=== PATIENT | male | born 1965 | race Caucasian/White ===

== ENCOUNTER 2017-12-16 14:52 | Inpatient (IN) | payer MEDICAID ==
[~2017-12-16] VITALS: Ht 167.6 cm; Wt 63.0 kg
[~2017-12-16 14:52] MED LIST: CHLO100T24 PO; TRIH5TAB2 PO
[2017-12-16 18:10] LABS: BASOPHILS # (AUTO) 0.05 K/uL (0.00-0.20); BASOPHILS % (AUTO) 0.5 % (0.0-2.0); EOSINOPHILS # (AUTO) 0.14 K/uL (0.00-0.70); EOSINOPHILS % (AUTO) 1.23 % (1.0-6.0); HEMATOCRIT 35.9 % (41-53); HEMOGLOBIN 11.9 g/dL (13.5-17.5); LYMPHOCYTES # (AUTO) 2.1 K/uL (1.0-4.8); LYMPHOCYTES % (AUTO) 18.7 % (22.0-44.0); MEAN CORPUSCULAR HEMOGLOBIN 29.8 pg (26.0-34.0); MEAN CORPUSCULAR HGB CONC 33.1 G/dL (31.0-37.0); MEAN CORPUSCULAR VOLUME 90 fL (80-100); MONOCYTES # (AUTO) 1.1 K/uL (0.1-1.0); MONOCYTES % (AUTO) 9.6 % (2.0-9.0); NEUTROPHILS # (AUTO) 7.8 K/uL (1.8-7.7); PLATELET COUNT (AUTO) 522 K/uL (150-450); RED BLOOD CELL COUNT(AUTO) 3.99 MIL/uL (4.50-5.90); RED CELL DISTRIBUTION WIDTH 15.4 % (11.5-14.5)
[2017-12-16 18:15] LABS: AMPHET/METH SCREEN,URINE NEGATIVE (NEGATIVE); BARBITURATE SCREEN, URINE NEGATIVE (NEGATIVE); BENZODIAZEPINES SCREEN,URINE NEGATIVE (NEGATIVE); CANNABINOID SCREEN,URINE POSITIVE (NEGATIVE); COCAINE SCREEN,URINE NEGATIVE (NEGATIVE); METHADONE SCREEN, URINE NEGATIVE (NEGATIVE); OPIATE SCREEN,URINE NEGATIVE (NEGATIVE); PHENCYCLIDINE SCREEN,URINE NEGATIVE (NEGATIVE)
[2017-12-16 18:20] LABS: ANION GAP 8 mmol/L (8-16); CALCIUM, TOTAL 8.7 mg/dL (8.8-10.5); CARBON DIOXIDE 27 mmol/L (22-29); CHLORIDE 101 mmol/L (98-107); CREATININE 1.08 mg/dL (0.60-1.30); GLOMERULAR FILTR. RATE CALC > 60 mL/min (>60); GLUCOSE,RANDOM 165 mg/dL (70-110); POTASSIUM 3.4 mmol/L (3.5-5.1); SODIUM SERUM 136 mmol/L (136-145); UREA NITROGEN, BLOOD 11 mg/dL (7-18)
[2017-12-16 18:26] LABS: ALANINE AMINOTRANSFERASE 49 U/L (12-78); ALBUMIN 3.4 g/dL (3.4-5.0); ALKALINE PHOSPHATASE 90 U/L (46-116); ASPARTATE AMINOTRANSFERASE 48 U/L (15-37); BILIRUBIN,TOTAL 0.3 mg/dL (0.1-1.0)
[2017-12-16] MEDS: LORazepam 2 MG TABLET PO PRN (22:57)
[2017-12-16] MEDS: ZOLPIDEM TARTRATE 10 MG TABLET PO PRN (22:57)
[2017-12-17 09:17] LABS: CHOL/HDL RATIO 2.4 (4.2-7.3); CHOLESTEROL 133 mg/dL (131-200); HDL CHOLESTEROL 55 mg/dL (40-60); LDL CHOL (CALC.) 57 mg/dL (0-130); TRIGLYCERIDES 104 mg/dL (15-150)
[2017-12-17 14:09] VITALS: BP 123/96
[2017-12-17 16:29] VITALS: BP 133/70
[2017-12-17] MEDS ORDERED: POTASSIUM CHLORIDE 20 MEQ ER TABLET PO ONE (16:30)
[2017-12-17] MEDS: LORazepam 2 MG TABLET PO PRN (17:00)
[2017-12-17] MEDS ORDERED: DiphenhydrAMINE HCL 50 MG/ML VIAL ONE (18:02)
[2017-12-17] MEDS ORDERED: HALOPERIDOL LACTATE 5 MG/ML VIAL ONE (18:02)
[2017-12-17] MEDS ORDERED: LORazepam 2 MG/ML VIAL ONE (18:02)
[2017-12-17] MEDS ORDERED: DiphenhydrAMINE HCL 50 MG/ML VIAL IM ONE (18:15)
[2017-12-17] MEDS ORDERED: LORazepam 2 MG/ML VIAL IM ONE (18:15)
[2017-12-17] MEDS ORDERED: HALOPERIDOL LACTATE 5 MG/ML VIAL IM ONE (18:15)
[2017-12-18 08:00] VITALS: BP 119/91
[2017-12-18] MEDS: OLANZapine 5 MG TABLET PO SCH ×2 (09:02→16:35)
[2017-12-18] MEDS ORDERED: DiphenhydrAMINE HCL 50 MG/ML VIAL ONE (16:58)
[2017-12-18] MEDS ORDERED: LORazepam 2 MG/ML VIAL IM ONE (17:00)
[2017-12-18] MEDS ORDERED: DiphenhydrAMINE HCL 50 MG/ML VIAL IM ONE (17:00)
[2017-12-18] MEDS ORDERED: HALOPERIDOL LACTATE 5 MG/ML VIAL IM ONE (17:00)
[2017-12-18 17:44] VITALS: BP 118/74
[2017-12-19] MEDS ORDERED: INFLUENZA VIRUS VACCINE QVS 2017-18 (3YR+)/PF 60 MCG/0.5 ML SYRINGE IM ONE (02:00)
[2017-12-19] MEDS ORDERED: -PHARMACY VACCINE NOTE- MISC ONE (02:00)
[2017-12-19 06:46] LABS: ANION GAP 6 mmol/L (8-16); CALCIUM, TOTAL 8.6 mg/dL (8.8-10.5); CARBON DIOXIDE 29 mmol/L (22-29); CHLORIDE 101 mmol/L (98-107); CREATININE 0.75 mg/dL (0.60-1.30); GLOMERULAR FILTR. RATE CALC > 60 mL/min (>60); GLUCOSE,RANDOM 96 mg/dL (70-110); POTASSIUM 4.3 mmol/L (3.5-5.1); SODIUM SERUM 136 mmol/L (136-145); UREA NITROGEN, BLOOD 15 mg/dL (7-18)
[2017-12-19 07:16] LABS: BASOPHILS % (AUTO) 0.6 % (0.0-2.0); EOSINOPHILS % (AUTO) 2.9 % (1.0-6.0); HEMATOCRIT 38.9 % (41-53); HEMOGLOBIN 12.8 g/dL (13.5-17.5); LYMPHOCYTES # (AUTO) 1.8 K/uL (1.0-4.8); MEAN CORPUSCULAR HGB CONC 32.9 G/dL (31.0-37.0); MEAN CORPUSCULAR VOLUME 91 fL (80-100); MONOCYTES # (AUTO) 0.6 K/uL (0.1-1.0); MONOCYTES % (AUTO) 8.9 % (2.0-9.0); NEUTROPHILS # (AUTO) 4.2 K/uL (1.8-7.7); NEUTROPHILS % (AUTO) 61.6 % (40.0-70.0); PLATELET COUNT (AUTO) 508 K/uL (150-450); RED BLOOD CELL COUNT(AUTO) 4.27 MIL/uL (4.50-5.90); RED CELL DISTRIBUTION WIDTH 16.1 % (11.5-14.5)
[2017-12-19] MEDS: OLANZapine 5 MG TABLET PO SCH (08:13)
[2017-12-19 08:48] VITALS: BP 129/79
[2017-12-19] MEDS: LORazepam 2 MG TABLET PO PRN (13:27)
[2017-12-19] MEDS: HALOPERIDOL 5 MG TABLET PO PRN (13:27)
[2017-12-19] MEDS: OLANZapine 10 MG TABLET PO SCH (17:36)
[2017-12-20] MEDS: OLANZapine 10 MG TABLET PO SCH ×2 (07:58→16:26)
[2017-12-20 08:00] VITALS: BP 143/83
[2017-12-20] MEDS: HALOPERIDOL 5 MG TABLET PO PRN (13:48)
[2017-12-20] MEDS: LORazepam 2 MG TABLET PO PRN ×2 (13:48→23:32)
[2017-12-20 16:00] VITALS: BP 111/69
[2017-12-20] MEDS: ZOLPIDEM TARTRATE 10 MG TABLET PO PRN (23:31)
[2017-12-21 05:34] VITALS: BP 114/77
[2017-12-21] MEDS: OLANZapine 10 MG TABLET PO SCH ×2 (08:07→17:12)
[2017-12-21] MEDS: LORazepam 2 MG TABLET PO PRN ×2 (08:08→19:15)
[2017-12-21 08:52] VITALS: BP 125/82
[2017-12-21] MEDS: DIVALPROEX SODIUM 500 MG ER TABLET PO SCH (17:12)
[2017-12-21] MEDS: DiphenhydrAMINE HCL 25 MG CAPSULE PO SCH (17:12)
[2017-12-21] MEDS: HALOPERIDOL 5 MG TABLET PO PRN (19:15)
[2017-12-22] MEDS: DIVALPROEX SODIUM 500 MG ER TABLET PO SCH ×2 (08:13→16:20)
[2017-12-22] MEDS: HALOPERIDOL 5 MG TABLET PO PRN ×2 (08:13→14:45)
[2017-12-22] MEDS: OLANZapine 10 MG TABLET PO SCH ×2 (08:13→16:20)
[2017-12-22] MEDS: DiphenhydrAMINE HCL 25 MG CAPSULE PO SCH ×2 (08:13→16:20)
[2017-12-22] MEDS: LORazepam 2 MG TABLET PO PRN ×2 (08:13→14:45)
[2017-12-22 09:29] VITALS: BP 112/72
[2017-12-22] MEDS: ZOLPIDEM TARTRATE 10 MG TABLET PO PRN (20:11)
[2017-12-23] MEDS: DIVALPROEX SODIUM 500 MG ER TABLET PO SCH ×2 (07:55→16:31)
[2017-12-23] MEDS: DiphenhydrAMINE HCL 25 MG CAPSULE PO SCH ×2 (07:55→16:30)
[2017-12-23] MEDS: OLANZapine 10 MG TABLET PO SCH ×2 (07:55→16:30)
[2017-12-23] MEDS: LORazepam 2 MG TABLET PO PRN ×2 (07:55→13:56)
[2017-12-23] MEDS: HALOPERIDOL 5 MG TABLET PO PRN ×2 (07:56→13:56)
[2017-12-23 08:22] VITALS: BP 132/72
[2017-12-23] MEDS: ZOLPIDEM TARTRATE 10 MG TABLET PO PRN (20:33)
[2017-12-24 04:44] VITALS: BP 123/84
[2017-12-24 06:13] LABS: HEMATOCRIT 37.1 % (41-53); HEMOGLOBIN 12.2 g/dL (13.5-17.5); MEAN CORPUSCULAR HEMOGLOBIN 29.6 pg (26.0-34.0); MEAN CORPUSCULAR VOLUME 90 fL (80-100); PLATELET COUNT (AUTO) 347 K/uL (150-450); RED BLOOD CELL COUNT(AUTO) 4.13 MIL/uL (4.50-5.90); RED CELL DISTRIBUTION WIDTH 15.7 % (11.5-14.5)
[2017-12-24 07:00] LABS: ALANINE AMINOTRANSFERASE 27 U/L (12-78); ALBUMIN 3.2 g/dL (3.4-5.0); ALKALINE PHOSPHATASE 71 U/L (46-116); ANION GAP 4 mmol/L (8-16); ASPARTATE AMINOTRANSFERASE 18 U/L (15-37); BILIRUBIN,TOTAL 0.2 mg/dL (0.1-1.0); CALCIUM, TOTAL 8.5 mg/dL (8.8-10.5); CARBON DIOXIDE 32 mmol/L (22-29); CHLORIDE 105 mmol/L (98-107); CREATININE 0.91 mg/dL (0.60-1.30); GLOMERULAR FILTR. RATE CALC > 60 mL/min (>60); GLUCOSE,RANDOM 83 mg/dL (70-110); POTASSIUM 4.8 mmol/L (3.5-5.1); SODIUM SERUM 141 mmol/L (136-145); TOTAL PROTEIN, SERUM 6.8 g/dL (6.4-8.2); UREA NITROGEN, BLOOD 17 mg/dL (7-18); VALPROIC ACID 36 mcg/mL (50-100)
[2017-12-24] MEDS: LORazepam 2 MG TABLET PO PRN ×2 (07:38→16:02)
[2017-12-24] MEDS: HALOPERIDOL 5 MG TABLET PO PRN ×2 (07:39→16:02)
[2017-12-24] MEDS: OLANZapine 10 MG TABLET PO SCH ×2 (07:39→16:35)
[2017-12-24] MEDS: DIVALPROEX SODIUM 500 MG ER TABLET PO SCH ×2 (07:39→16:35)
[2017-12-24] MEDS: DiphenhydrAMINE HCL 25 MG CAPSULE PO SCH ×2 (07:39→16:35)
[2017-12-24 08:16] VITALS: BP 115/58
[2017-12-24 08:26] LABS: BAND NEUTROPHILS % (MANUAL) 2 % (1-5); EOSINOPHILS % (MANUAL) 1 % (1-6); LYMPHOCYTES % (MANUAL) 53 % (22-44); MONOCYTES % (MANUAL) 2 % (2-9); SEGMENTED NEUTROPHILS % 42 % (40-70)
[2017-12-24] MEDS: ACETAMINOPHEN 500 MG TABLET PO PRN (09:00)
[2017-12-24 16:24] VITALS: BP 115/66
[2017-12-25] MEDS: LORazepam 2 MG TABLET PO PRN ×2 (04:50→07:48)
[2017-12-25 04:51] VITALS: BP 113/69
[2017-12-25] MEDS: ACETAMINOPHEN 500 MG TABLET PO PRN (05:00)
[2017-12-25] MEDS: OLANZapine 10 MG TABLET PO SCH (07:48)
[2017-12-25] MEDS: DIVALPROEX SODIUM 500 MG ER TABLET PO SCH (07:48)
[2017-12-25] MEDS: DiphenhydrAMINE HCL 25 MG CAPSULE PO SCH (07:48)
[2017-12-25] MEDS: HALOPERIDOL 5 MG TABLET PO PRN (07:48)
[2017-12-25 08:00] VITALS: BP 127/72
[2017-12-25] MEDS ORDERED: DIVA500T52 PO (12:08)
[2017-12-25] MEDS ORDERED: OLAN10TA3 PO (12:09)
[2017-12-25] MEDS ORDERED: DIPH50 PO (12:09)
== END 2017-12-25 14:45 | disposition home or self-care (01) | DRG 750 ==
LOC: EMS 14:53 → 3EC 12-17 13:04
PROVIDERS: ADMIT Psychiatry & Neurology Psychiatry; ATTEND Psychiatry & Neurology Psychiatry
PROC: 3E0234Z Introduction of Serum, Toxoid and Vaccine into Muscle, Percutaneous Approach (ICD-10-PCS; principal; 2017-12-19)
DX: F20.0 Paranoid schizophrenia (principal); Z59.0 Homelessness; D47.3 Essential (hemorrhagic) thrombocythemia; E87.6 Hypokalemia; F12.90 Cannabis use, unspecified, uncomplicated; D64.9 Anemia, unspecified; F31.9 Bipolar disorder, unspecified; F41.9 Anxiety disorder, unspecified; R73.9 Hyperglycemia, unspecified; F17.200 Nicotine dependence, unspecified, uncomplicated; Z89.022 Acquired absence of left finger(s); Z23 Encounter for immunization
CPT/HCPCS: 72040; 80074; 83036; 85007; 99285; G0480; J1200; J1630; J2060